=== PATIENT | female | born 1970 | race Hispanic/Latino ===

== ENCOUNTER 2024-04-30 21:49 | Emergency (ER) | payer BC, OTHER ==
[~2024-04-30] VITALS: Ht 154.9 cm; Wt 77.6 kg
[2024-04-30] MEDS: ONDANSETRON 4MG INJ IVP ONE (22:38)
[2024-04-30] MEDS: 0.9%NACL 1000ML 1,000 ML IV ONE (22:38)
[2024-04-30] MEDS: MORPHINE 2 MG SYG IVP ONE (22:38)
[2024-04-30 23:03] LABS: BASOPHILS # (AUTO) 0.02 K/uL (0.00-0.20); BASOPHILS % (AUTO) 0.2 % (0.0-5.0); EOSINOPHILS # (AUTO) 0.03 K/uL (0.00-0.70); EOSINOPHILS % (AUTO) 0.3 % (0.0-8.0); HEMATOCRIT 34.9 % (36-48); IMMATURE GRANULOCYTE ABSOLUTE 0.05 K/uL (0-1); LYMPHOCYTES % (AUTO) 11.1 % (21.0-51.0); MEAN CORPUSCULAR HEMOGLOBIN 27.2 pg (27.0-33.0); MEAN CORPUSCULAR HGB CONC 33.5 g/dL (32.0-36.0); MEAN CORPUSCULAR VOLUME 81.2 fL (79-99); MONOCYTES # (AUTO) 0.3 K/uL (0.1-1.0); MONOCYTES % (AUTO) 3.3 % (3.0-13.0); NEUTROPHILS # (AUTO) 7.5 K/uL (1.8-7.7); NEUTROPHILS % (AUTO) 84.5 % (40.0-77.0); PLATELET COUNT (AUTO) 269 K/uL (130-400); WHITE BLOOD COUNT (AUTO) 8.9 K/uL (4.8-10.8)
[2024-04-30] MEDS ORDERED: IBUP-2077 PO (23:16)
[2024-04-30 23:21] LABS: CREATININE 0.6 mg/dL (0.5-1.0); POTASSIUM 3.8 mmol/L (3.5-5.1)
[2024-04-30 23:25] LABS: ALBUMIN 3.4 g/dL (3.5-5.0); BILIRUBIN,TOTAL 0.4 mg/dL (0.2-1.0); TOTAL PROTEIN, SERUM 7.1 g/dL (6.0-8.3)
[2024-05-01] MEDS: DICYCLOMINE 20MG (10MG/ML) AMP IM STA (01:44)
[2024-05-01 01:57] LABS: APPEARANCE,URINE CLEAR (CLEAR); BILIRUBIN,URINE NEGATIVE (NEGATIVE); COLOR,URINE COLORLESS (YELLOW); GLUCOSE, URINE (UA) NEGATIVE (NEGATIVE); KETONES,URINE NEGATIVE (NEGATIVE); LEUKOCYTE ESTERASE ,URINE NEGATIVE Leu/uL (NEGATIVE); NITRATE,URINE NEGATIVE (NEGATIVE); OCCULT BLOOD,URINE NEGATIVE (NEGATIVE); PROTEIN,URINE NEGATIVE (NEGATIVE); UROBILINOGEN,URINE 0.2 mg/dL (0.2-1.0)
[2024-05-01 01:59] LABS: HCG,QUALITATIVE URINE NEGATIVE (NEGATIVE)
[2024-05-01 02:01] LABS: ADD UA MICROSCOPIC NO
[2024-05-01] MEDS ORDERED: DICY20TA2 PO (02:04)
[2024-05-01 02:41] VITALS: BP 142/76; PULSE 76; RESP 20; O2SAT 99
== END 2024-05-01 02:55 | disposition home or self-care (01) ==
LOC: EDH 21:49
DX: K80.20 Calculus of gallbladder without cholecystitis without obstruction (principal); Z98.51 Tubal ligation status
CPT/HCPCS: 99285; 96374; 76705; 96375; 84484; 80053; 83690; 85025; 81003; 81025; 36415; 93005; 96372; J2270; J7030; J2405; J0500